=== PATIENT | male | born 1960 | race African-American/Black ===

== ENCOUNTER 2018-05-07 21:51 | Inpatient (IN) | payer BC ==
[~2018-05-07] VITALS: Ht 190.5 cm; Wt 118.8 kg
[~2018-05-07 21:51] MED LIST: ASPI-1159 PO; ATOR10TA PO; LEVO25TA2 PO
[2018-05-07] MEDS ORDERED: ACETAMINOPHEN 325MG TABLET PO STA (22:36)
[2018-05-07] MEDS ORDERED: ASPIRIN 81MG TABLET PO ONE (22:45)
[2018-05-07] MEDS ORDERED: NITROGLYCERIN OINT 1GM/INCH UDPKT TD ONE (22:45)
[2018-05-07 23:21] LABS: BASOPHILS % 0.3 % (0.0-2.0); EOSINOPHILS % 4.8 % (0.0-5.0); HEMATOCRIT. 41.1 % (42.0-52.0); HEMOGLOBIN. 13.8 g/dL (14.0-18.0); LYMPHOCYTES % 27.5 % (20.0-50.0); MEAN CORPUSCULAR HEMOGLOBIN 29.3 pg (28.0-32.0); MEAN CORPUSCULAR VOLUME 87.3 fL (80.0-94.0); MEAN PLATELET VOLUME 8.5 fl (7.4-10.4); NEUTROPHILS % 58.4 % (40.0-76.0); PLATELET 168 x1000/uL (130-400); RED BLOOD CELL COUNT 4.71 mill/uL (4.7-6.1); RED CELL DISTRIBUTION WIDTH 13.9 % (11.6-14.6)
[2018-05-07 23:25] LABS: CHLORIDE 108 mEq/L (98-107)
[2018-05-07 23:28] LABS: INR 1.1; PROTHROMBIN TIME 11.4 sec (9.4-11.6)
[2018-05-07 23:29] LABS: ETHANOL BLOOD < 10 mg/dL
[2018-05-08] MEDS ORDERED: ACETAMINOPHEN 325MG TABLET ONE (00:07)
[2018-05-08 01:35] LABS: CLARITY URINE CLEAR (CLEAR); COLOR URINE YELLOW (YELLOW); KETONES URINE NEGATIVE (NEGATIVE); LEUKOCYTE ESTERASE URINE 3+ (NEGATIVE); NITRITE URINE NEGATIVE (NEGATIVE); OCCULT BLOOD URINE NEGATIVE (NEGATIVE); PH URINE 6.5 (4.5-8.0); PROTEIN URINE NEGATIVE (NEGATIVE); SPECIFIC GRAVITY URINE 1.012 (1.005-1.030); UROBILINOGEN URINE 0.2 E.U./dL (0.2-1.0)
[2018-05-08 01:46] LABS: *AMPHETAMINES SCREEN URINE NEGATIVE (NEGATIVE); *BARBITURATES SCREEN URINE NEGATIVE (NEGATIVE)
[2018-05-08 01:47] LABS: *BENZODIAZEPINES SCREEN URINE NEGATIVE (NEGATIVE); *COCAINE SCREEN URINE NEGATIVE (NEGATIVE); CANNABINOID URINE SCREEN NEGATIVE (NEGATIVE); METHADONE URINE SCREEN NEGATIVE (NEGATIVE); OPIATES URINE SCREEN NEGATIVE (NEGATIVE); PHENCYCLIDINE URINE SCREEN NEGATIVE (NEGATIVE)
[2018-05-08] MEDS ORDERED: CEFTRIAXONE 1 G PREMIX 50 ML IV NR (02:45)
[2018-05-08] MEDS ORDERED: CLOP75TA16 PO (10:05)
[2018-05-08] MEDS: ASPIRIN 81MG TABLET PO SCH (10:44)
[2018-05-08] MEDS: CLOPIDOGREL 75MG TABLET PO SCH (10:44)
[2018-05-08] MEDS: LEVOTHYROXINE SODIUM 25MCG TABLET PO SCH (10:45)
[2018-05-08 21:15] VITALS: BP 118/74
[2018-05-08] MEDS ORDERED: ONDANSETRON HCL 4MG/2ML VIAL IV PRN (23:15)
[2018-05-08] MEDS ORDERED: ATORVASTATIN CALCIUM 10MG TABLET PO SCH (23:15)
[2018-05-08] MEDS ORDERED: ACETAMINOPHEN 325MG TABLET PO PRN (23:15)
[2018-05-08] MEDS ORDERED: DEXTROSE 50% WATER 50ML SYRINGE IV PRN (23:30)
[2018-05-09] VITALS: BP 130/76
[2018-05-09 04:00] VITALS: BP 117/80
[2018-05-09] MEDS ORDERED: BLOOD SUGAR DIAGNOSTIC STRIP TEST SCH (07:10)
[2018-05-09 07:34] VITALS: BP 103/56
[2018-05-09] MEDS ORDERED: INSULIN LISPRO 100 UNITS/ML SUBCUT SCH (07:40)
[2018-05-09 08:21] LABS: BASOPHILS % 0.4 % (0.0-2.0); EOSINOPHILS % 4.9 % (0.0-5.0); HEMATOCRIT. 41.6 % (42.0-52.0); HEMOGLOBIN. 14.2 g/dL (14.0-18.0); LYMPHOCYTES % 31.5 % (20.0-50.0); MEAN CORPUSCULAR HEMOGLOBIN 29.6 pg (28.0-32.0); MEAN CORPUSCULAR VOLUME 87.1 fL (80.0-94.0); MEAN PLATELET VOLUME 8.8 fl (7.4-10.4); MONOCYTES % 10.3 % (2.0-8.0); NEUTROPHILS % 52.9 % (40.0-76.0); PLATELET 168 x1000/uL (130-400); RED BLOOD CELL COUNT 4.77 mill/uL (4.7-6.1); RED CELL DISTRIBUTION WIDTH 14.2 % (11.6-14.6)
[2018-05-09 09:08] LABS: CHLORIDE 108 mEq/L (98-107)
[2018-05-09 09:27] LABS: LDL CHOLESTEROL 64 mg/dL (5-100)
[2018-05-09 09:29] LABS: CREATINE KINASE 255 IU/L (39-308)
[2018-05-09 09:30] LABS: HDL CHOLESTEROL 36 mg/dL (40-59)
[2018-05-09 09:33] LABS: CREATINE KINASE MB FRACTION 0.7 ng/mL (0.5-3.6)
[2018-05-09] MEDS: CLOPIDOGREL 75MG TABLET PO SCH (09:39)
[2018-05-09] MEDS: ASPIRIN 81MG TABLET PO SCH (09:39)
[2018-05-09] MEDS: LEVOTHYROXINE SODIUM 25MCG TABLET PO SCH (09:39)
[2018-05-09 11:40] VITALS: BP 116/67
[2018-05-09 11:42] VITALS: BP 116/67
== END 2018-05-09 12:09 | disposition home or self-care (01) | DRG 206 ==
LOC: ER 21:51 → 8WST 05-08 02:43 → ENRESERV 05-08 19:34
PROVIDERS: ADMIT Internal Medicine; ATTEND Internal Medicine
DX: M94.0 Chondrocostal junction syndrome [Tietze] (principal); I42.9 Cardiomyopathy, unspecified; R74.0 Nonspecific elevation of levels of transaminase and lactic acid dehydrogenase [LDH]; E03.9 Hypothyroidism, unspecified; E78.00 Pure hypercholesterolemia, unspecified; E78.5 Hyperlipidemia, unspecified; I10 Essential (primary) hypertension; I25.10 Atherosclerotic heart disease of native coronary artery without angina pectoris; I25.2 Old myocardial infarction; Z82.49 Family history of ischemic heart disease and other diseases of the circulatory system; Z86.73 Personal history of transient ischemic attack (TIA), and cerebral infarction without residual deficits; Z79.899 Other long term (current) drug therapy; Z79.82 Long term (current) use of aspirin
CPT/HCPCS: 36415; 71045; 80048; 80053; 80061; 80305; 81003; 82550; 82553; 82962; 83605; 83690; 83735; 83880; 84484; 85025; 85610; 87086; 93005; 99285; G0482; J0696

== ENCOUNTER 2018-08-30 07:44 | Emergency (ER) | payer BC ==
[~2018-08-30] VITALS: Ht 190.5 cm; Wt 125.0 kg
[~2018-08-30 07:44] MED LIST changes: +CLOP75TA16 PO
[2018-08-30 07:55] VITALS: BP 141/81
[2018-09-15] MEDS ORDERED: CLOP75TA33 PO (13:47)
[2018-09-15] MEDS ORDERED: METO25TA6 PO (13:47)
[2018-09-15] MEDS ORDERED: TRAM100C3 PO (13:47)
[2018-09-15] MEDS ORDERED: AMI2 PO (13:47)
== END 2018-08-30 09:07 | disposition home or self-care (01) ==
LOC: ER 07:44
DX: S16.1XXA Strain of muscle, fascia and tendon at neck level, initial encounter (principal); I25.2 Old myocardial infarction; R03.0 Elevated blood-pressure reading, without diagnosis of hypertension; Z86.73 Personal history of transient ischemic attack (TIA), and cerebral infarction without residual deficits; Z79.82 Long term (current) use of aspirin; X58.XXXA Exposure to other specified factors, initial encounter; Y93.89 Activity, other specified; Y92.018 Other place in single-family (private) house as the place of occurrence of the external cause
CPT/HCPCS: 99282; 99283

== ENCOUNTER 2018-09-04 11:50 | Inpatient (IN) | payer BC ==
[~2018-09-04] VITALS: Ht 190.5 cm; Wt 124.0 kg
[2018-09-04] VITALS (16 sets, daily range): BP systolic 99–141; BP diastolic 29–96
[2018-09-04 13:00] LABS: INR 1.1; PROTHROMBIN TIME 10.7 sec (9.1-11.1)
[2018-09-04 13:03] LABS: CHLORIDE 103 mEq/L (98-107)
[2018-09-04 13:06] LABS: BASOPHILS % 0.5 % (0.0-2.0); EOSINOPHILS % 7.1 % (0.0-5.0); HEMATOCRIT. 44.8 % (42.0-52.0); HEMOGLOBIN. 15.4 g/dL (14.0-18.0); LYMPHOCYTES % 26.8 % (20.0-50.0); MEAN CORPUSCULAR HEMOGLOBIN 30.3 pg (28.0-32.0); MEAN CORPUSCULAR VOLUME 88.4 fL (80.0-94.0); MEAN PLATELET VOLUME 8.6 fl (7.4-10.4); MONOCYTES % 10.8 % (2.0-8.0); NEUTROPHILS % 54.8 % (40.0-76.0); PLATELET 232 x1000/uL (130-400); RED BLOOD CELL COUNT 5.07 mill/uL (4.7-6.1); RED CELL DISTRIBUTION WIDTH 13.3 % (11.6-14.6)
[2018-09-04] MEDS ORDERED: AMIODARONE HCL 150 MG in DEXT 5% WATER 100 ML IV ONE (13:45)
[2018-09-04] MEDS ORDERED: AMIODARONE HCL 900 MG in DEXT 5% WATER 500 ML IV ONE (13:45)
[2018-09-04] MEDS ORDERED: AMIODARONE HCL 50MG/ML 3ML VIAL IV ONE (14:13)
[2018-09-04] MEDS ORDERED: POTASSIUM CHLORIDE 20MEQ TABLET SR PO NR (15:45)
[2018-09-04] MEDS ORDERED: ACETAMINOPHEN 650MG/20.3ML UDC PO PRN (16:00)
[2018-09-04] MEDS ORDERED: METOPROLOL TARTRATE 5MG/5ML VIAL IV NR (16:30)
[2018-09-04] MEDS ORDERED: METOPROLOL TARTRATE 5MG/5ML VIAL IV ONE (16:35)
[2018-09-04] MEDS ORDERED: METOPROLOL TARTRATE 5MG/5ML VIAL IV PRN (16:45)
[2018-09-04] MEDS: METOPROLOL TARTRATE 25MG TABLET PO SCH ×2 (16:46→21:00)
[2018-09-04] MEDS ORDERED: MAGNESIUM 1 G PREMIX 100 ML IV NR (17:00)
[2018-09-04] MEDS ORDERED: MAGNESIUM 1 G PREMIX 100 ML IV STA (17:48)
[2018-09-04] MEDS ORDERED: LIDOCAINE HCL 2% 5ML SYRINGE IV STA (17:48)
[2018-09-04] MEDS ORDERED: ESMOLOL 2500MG PREMIX 250 ML IV ONE ×2 (18:00)
[2018-09-04] MEDS ORDERED: LEVOTHYROXINE SODIUM 25MCG TABLET PO NR (21:00)
[2018-09-04] MEDS: ATORVASTATIN CALCIUM 20MG TABLET PO SCH (21:00)
[2018-09-04] MEDS: ENOXAPARIN 30MG/0.3ML SYR SUBCUT SCH (22:05)
[2018-09-04] MEDS: ESMOLOL 2500MG PREMIX 250 ML IV PRN (23:16)
[2018-09-04] MEDS: AMIODARONE HCL 900 MG in DEXT 5% WATER 500 ML IV PRN (23:18)
[2018-09-05] VITALS (91 sets, daily range): BP systolic 87–156; BP diastolic 29–87
[2018-09-05] MEDS: ESMOLOL 2500MG PREMIX 250 ML IV PRN ×3 (01:00→11:34)
[2018-09-05 05:14] LABS: BASOPHILS % 0.3 % (0.0-2.0); EOSINOPHILS % 7.6 % (0.0-5.0); HEMATOCRIT. 41.7 % (42.0-52.0); HEMOGLOBIN. 14.2 g/dL (14.0-18.0); LYMPHOCYTES % 23.6 % (20.0-50.0); MEAN CORPUSCULAR VOLUME 87.6 fL (80.0-94.0); MEAN PLATELET VOLUME 8.4 fl (7.4-10.4); MONOCYTES % 14.5 % (2.0-8.0); PLATELET 204 x1000/uL (130-400); RED BLOOD CELL COUNT 4.76 mill/uL (4.7-6.1); RED CELL DISTRIBUTION WIDTH 13.1 % (11.6-14.6)
[2018-09-05 05:36] LABS: CHLORIDE 104 mEq/L (98-107)
[2018-09-05 05:46] LABS: CREATINE KINASE 241 IU/L (39-308); CREATINE KINASE MB FRACTION < 1.0 ng/mL (0.5-3.6); HDL CHOLESTEROL 33 mg/dL (40-59); LDL CHOLESTEROL 62 mg/dL (5-100)
[2018-09-05] MEDS: METOPROLOL TARTRATE 25MG TABLET PO SCH ×2 (08:25→20:10)
[2018-09-05] MEDS: ENOXAPARIN 30MG/0.3ML SYR SUBCUT SCH ×2 (08:29→20:10)
[2018-09-05] MEDS: CLOPIDOGREL 75MG TABLET PO SCH (08:29)
[2018-09-05] MEDS: ASPIRIN 81MG TABLET PO SCH (11:43)
[2018-09-05] MEDS ORDERED: MAGNESIUM SULFATE 2 GM in DEXTROSE 5% WATER 50 ML IV NR (12:00)
[2018-09-05] MEDS: LEVOTHYROXINE SODIUM 25MCG TABLET PO SCH (13:46)
[2018-09-05] MEDS: AMIODARONE HCL 900 MG in DEXT 5% WATER 500 ML IV PRN (14:14)
[2018-09-05 15:46] LABS: *BENZODIAZEPINES SCREEN URINE NEGATIVE (NEGATIVE); *COCAINE SCREEN URINE NEGATIVE (NEGATIVE); METHADONE URINE SCREEN NEGATIVE (NEGATIVE); OPIATES URINE SCREEN NEGATIVE (NEGATIVE)
[2018-09-05 15:54] LABS: *AMPHETAMINES SCREEN URINE NEGATIVE (NEGATIVE); *BARBITURATES SCREEN URINE NEGATIVE (NEGATIVE); CANNABINOID URINE SCREEN NEGATIVE (NEGATIVE); PHENCYCLIDINE URINE SCREEN NEGATIVE (NEGATIVE)
[2018-09-05] MEDS: ATORVASTATIN CALCIUM 20MG TABLET PO SCH (20:09)
[2018-09-06] VITALS (59 sets, daily range): BP systolic 79–155; BP diastolic 37–107
[2018-09-06 05:55] LABS: BASOPHILS % 0.3 % (0.0-2.0); EOSINOPHILS % 8.8 % (0.0-5.0); HEMATOCRIT. 41.7 % (42.0-52.0); HEMOGLOBIN. 14.3 g/dL (14.0-18.0); LYMPHOCYTES % 22.8 % (20.0-50.0); MEAN CORPUSCULAR HEMOGLOBIN 29.9 pg (28.0-32.0); MEAN CORPUSCULAR VOLUME 87.3 fL (80.0-94.0); MEAN PLATELET VOLUME 8.7 fl (7.4-10.4); MONOCYTES % 14.7 % (2.0-8.0); NEUTROPHILS % 53.4 % (40.0-76.0); PLATELET 191 x1000/uL (130-400); RED BLOOD CELL COUNT 4.78 mill/uL (4.7-6.1); RED CELL DISTRIBUTION WIDTH 13.2 % (11.6-14.6)
[2018-09-06 06:46] LABS: CHLORIDE 102 mEq/L (98-107)
[2018-09-06] MEDS: ENOXAPARIN 30MG/0.3ML SYR SUBCUT SCH ×2 (08:45→20:26)
[2018-09-06] MEDS: ASPIRIN 81MG TABLET PO SCH (08:45)
[2018-09-06] MEDS: CLOPIDOGREL 75MG TABLET PO SCH (08:45)
[2018-09-06] MEDS: LEVOTHYROXINE SODIUM 25MCG TABLET PO SCH (08:46)
[2018-09-06] MEDS: METOPROLOL TARTRATE 25MG TABLET PO SCH ×2 (08:46→22:09)
[2018-09-06] MEDS: AMIODARONE HCL 200 MG TABLET PO SCH ×2 (09:51→20:26)
[2018-09-06] MEDS ORDERED: MAGNESIUM SULFATE 2 GM in DEXTROSE 5% WATER 50 ML IV SCH (11:00)
[2018-09-06] MEDS ORDERED: DIPHENHYDRAMINE 25MG CAPSULE PO NR (19:47)
[2018-09-06] MEDS: ATORVASTATIN CALCIUM 20MG TABLET PO SCH (20:26)
[2018-09-07] VITALS (43 sets, daily range): BP systolic 63–152; BP diastolic 34–105
[2018-09-07 06:03] LABS: BASOPHILS % 0.2 % (0.0-2.0); EOSINOPHILS % 7.9 % (0.0-5.0); HEMATOCRIT. 41.7 % (42.0-52.0); HEMOGLOBIN. 14.3 g/dL (14.0-18.0); LYMPHOCYTES % 20.6 % (20.0-50.0); MEAN CORPUSCULAR HEMOGLOBIN 30.1 pg (28.0-32.0); MEAN CORPUSCULAR VOLUME 87.8 fL (80.0-94.0); MEAN PLATELET VOLUME 8.3 fl (7.4-10.4); MONOCYTES % 14.8 % (2.0-8.0); NEUTROPHILS % 56.5 % (40.0-76.0); PLATELET 200 x1000/uL (130-400); RED BLOOD CELL COUNT 4.75 mill/uL (4.7-6.1); RED CELL DISTRIBUTION WIDTH 12.8 % (11.6-14.6)
[2018-09-07 06:08] LABS: CHLORIDE 99 mEq/L (98-107)
[2018-09-07] MEDS: AMIODARONE HCL 200 MG TABLET PO SCH ×2 (08:09→20:20)
[2018-09-07] MEDS: METOPROLOL TARTRATE 25MG TABLET PO SCH ×2 (08:09→21:22)
[2018-09-07] MEDS: LEVOTHYROXINE SODIUM 25MCG TABLET PO SCH (08:09)
[2018-09-07] MEDS: CLOPIDOGREL 75MG TABLET PO SCH (08:09)
[2018-09-07] MEDS: ASPIRIN 81MG TABLET PO SCH (08:11)
[2018-09-07] MEDS ORDERED: ASPIRIN/SOD BICARB/CITRIC ACID 324MG TAB EFF ONE (08:22)
[2018-09-07] MEDS ORDERED: LIDOCAINE HCL 1% 20ML VIAL (Pyxis) INJ ONE (08:25)
[2018-09-07] MEDS ORDERED: MIDAZOLAM HCL 2 MG/2 ML VIAL ONE (08:25)
[2018-09-07] MEDS ORDERED: FENTANYL CITRATE/PF 50MCG/ML 2ML VIAL ONE (08:25)
[2018-09-07] MEDS ORDERED: IODIXANOL 320MG/ML 100 ML BOTTLE IV ONE (08:26)
[2018-09-07] MEDS ORDERED: ATROPINE SULFATE 1MG/10ML SYR IV PRN (09:15)
[2018-09-07] MEDS ORDERED: SODIUM CHLORIDE 0.45% 1,000 ML IV ONE (09:15)
[2018-09-07] MEDS ORDERED: ACETAMINOPHEN 325MG TABLET PO PRN (09:15)
[2018-09-07] MEDS ORDERED: MORPHINE SULFATE 4 MG/ML CPJ (NOT FOR IM USE) IV PRN (09:15)
[2018-09-07] MEDS ORDERED: HEPARIN SODIUM 1,000 UNIT/1ML VIAL IV ONE (14:06)
[2018-09-07] MEDS ORDERED: NICARDIPINE 100MCG/ML 10ML VIAL (CATH LAB) IV ONE (15:32)
[2018-09-07] MEDS ORDERED: NITROGLYCERIN 50MCG/ML 10ML VIAL (CATH LAB) IV ONE (15:32)
[2018-09-07] MEDS: ATORVASTATIN CALCIUM 20MG TABLET PO SCH (20:19)
[2018-09-07] MEDS: DIPHENHYDRAMINE 25MG CAPSULE PO PRN (21:23)
[2018-09-08] VITALS (44 sets, daily range): BP systolic 98–139; BP diastolic 24–93
[2018-09-08 05:51] LABS: BASOPHILS % 0.3 % (0.0-2.0); EOSINOPHILS % 6.8 % (0.0-5.0); HEMATOCRIT. 41.9 % (42.0-52.0); HEMOGLOBIN. 14.5 g/dL (14.0-18.0); LYMPHOCYTES % 17.3 % (20.0-50.0); MEAN CORPUSCULAR HEMOGLOBIN 29.9 pg (28.0-32.0); MEAN CORPUSCULAR VOLUME 86.4 fL (80.0-94.0); MEAN PLATELET VOLUME 8.3 fl (7.4-10.4); MONOCYTES % 13.6 % (2.0-8.0); PLATELET 221 x1000/uL (130-400); RED BLOOD CELL COUNT 4.84 mill/uL (4.7-6.1)
[2018-09-08 06:24] LABS: CHLORIDE 98 mEq/L (98-107)
[2018-09-08] MEDS: LEVOTHYROXINE SODIUM 25MCG TABLET PO SCH (08:12)
[2018-09-08] MEDS: CLOPIDOGREL 75MG TABLET PO SCH (09:06)
[2018-09-08] MEDS: AMIODARONE HCL 200 MG TABLET PO SCH ×2 (09:06→20:13)
[2018-09-08] MEDS: METOPROLOL TARTRATE 25MG TABLET PO SCH ×2 (09:07→20:24)
[2018-09-08] MEDS: ASPIRIN 81MG TABLET PO SCH (09:07)
[2018-09-08] MEDS ORDERED: MAGNESIUM 2 G PREMIX 50 ML IV ONE (10:15)
[2018-09-08] MEDS: MAGNESIUM OXIDE 400MG TABLET PO SCH (10:35)
[2018-09-08] MEDS ORDERED: MAGNESIUM SULFATE 2 GM in DEXTROSE 5% WATER 50 ML IV NR (12:00)
[2018-09-08] MEDS: ATORVASTATIN CALCIUM 20MG TABLET PO SCH (20:12)
[2018-09-08] MEDS: DIPHENHYDRAMINE 25MG CAPSULE PO PRN (20:13)
[2018-09-09] VITALS (11 sets, daily range): BP systolic 110–142; BP diastolic 70–85
[2018-09-09] MEDS: LEVOTHYROXINE SODIUM 25MCG TABLET PO SCH (06:09)
[2018-09-09 06:37] LABS: BASOPHILS % 0.3 % (0.0-2.0); EOSINOPHILS % 2.3 % (0.0-5.0); HEMATOCRIT. 43.4 % (42.0-52.0); LYMPHOCYTES % 12.7 % (20.0-50.0); MEAN CORPUSCULAR HEMOGLOBIN 30.1 pg (28.0-32.0); MEAN CORPUSCULAR VOLUME 86.7 fL (80.0-94.0); MEAN PLATELET VOLUME 7.9 fl (7.4-10.4); NEUTROPHILS % 73.7 % (40.0-76.0); PLATELET 208 x1000/uL (130-400); RED BLOOD CELL COUNT 5.01 mill/uL (4.7-6.1)
[2018-09-09 06:50] LABS: CHLORIDE 97 mEq/L (98-107)
[2018-09-09] MEDS: MAGNESIUM OXIDE 400MG TABLET PO SCH (09:03)
[2018-09-09] MEDS: AMIODARONE HCL 200 MG TABLET PO SCH ×2 (09:03→20:57)
[2018-09-09] MEDS: METOPROLOL TARTRATE 25MG TABLET PO SCH ×2 (09:03→20:58)
[2018-09-09] MEDS ORDERED: IODIXANOL 320MG/ML 100 ML BOTTLE IV ONE (11:37)
[2018-09-09] MEDS ORDERED: GENTAMICIN SULF 40MG/ML 2ML VIAL ONE (11:37)
[2018-09-09] MEDS ORDERED: LIDOCAINE HCL 1% 10 MG/ML 10ML VIAL ONE (11:37)
[2018-09-09] MEDS ORDERED: GENTAMICIN/NS IRRIGATION 500 ML IR ONE (11:38)
[2018-09-09] MEDS ORDERED: FENTANYL CITRATE/PF 50MCG/ML 2ML VIAL ONE (12:48)
[2018-09-09] MEDS ORDERED: PROPOFOL 200MG/20ML VIAL IV ONE (12:48)
[2018-09-09] MEDS ORDERED: MIDAZOLAM HCL 2 MG/2 ML VIAL ONE (12:48)
[2018-09-09] MEDS ORDERED: CEFAZOLIN SODIUM 1000MG/VIAL ONE (13:51)
[2018-09-09] MEDS ORDERED: MAGNESIUM SULFATE 2 GM in DEXTROSE 5% WATER 50 ML IV NR (15:00)
[2018-09-09] MEDS: ATORVASTATIN CALCIUM 20MG TABLET PO SCH (20:57)
[2018-09-10] VITALS (7 sets, daily range): BP systolic 113–139; BP diastolic 61–87
[2018-09-10] MEDS: DIPHENHYDRAMINE 25MG CAPSULE PO PRN (01:10)
[2018-09-10] MEDS: LEVOTHYROXINE SODIUM 25MCG TABLET PO SCH (06:07)
[2018-09-10 06:56] LABS: HEMOGLOBIN. 14.7 g/dL (14.0-18.0); MEAN CORPUSCULAR HEMOGLOBIN 30.3 pg (28.0-32.0); MEAN CORPUSCULAR VOLUME 86.5 fL (80.0-94.0); MEAN PLATELET VOLUME 7.6 fl (7.4-10.4); PLATELET 220 x1000/uL (130-400); RED BLOOD CELL COUNT 4.86 mill/uL (4.7-6.1); RED CELL DISTRIBUTION WIDTH 12.9 % (11.6-14.6)
[2018-09-10 08:25] LABS: CHLORIDE 97 mEq/L (98-107)
[2018-09-10] MEDS: MAGNESIUM OXIDE 400MG TABLET PO SCH (08:56)
[2018-09-10] MEDS: AMIODARONE HCL 200 MG TABLET PO SCH (08:56)
[2018-09-10] MEDS: METOPROLOL TARTRATE 25MG TABLET PO SCH (08:57)
[2018-09-10 10:31] LABS: PLATELET ESTIMATE NORMAL
[2018-09-10] MEDS ORDERED: MAGNESIUM 1 G PREMIX 100 ML IV SCH (11:00)
[2018-09-15] MEDS ORDERED: METO25TA6 PO (13:47)
[2018-09-15] MEDS ORDERED: CLOP75TA33 PO (13:47)
[2018-09-15] MEDS ORDERED: TRAM100C3 PO (13:47)
[2018-09-15] MEDS ORDERED: AMI2 PO (13:47)
== END 2018-09-10 12:59 | disposition home or self-care (01) | DRG 286 ==
LOC: ER 11:50 → CVICU 14:05 → EDBEDREQ 14:14 → SUPCPDRO 15:45 → ENRESERV 17:33 → 3WST 09-08 22:30
PROVIDERS: ADMIT Internal Medicine; ATTEND Internal Medicine
PROC: 4A023N7 Measurement of Cardiac Sampling and Pressure, Left Heart, Percutaneous Approach (ICD-10-PCS; principal; 2018-09-08)
PROC: B2151ZZ Fluoroscopy of Left Heart using Low Osmolar Contrast (ICD-10-PCS; 2018-09-08)
PROC: B2111ZZ Fluoroscopy of Multiple Coronary Arteries using Low Osmolar Contrast (ICD-10-PCS; 2018-09-08)
DX: I47.2 Ventricular tachycardia (principal); J96.00 Acute respiratory failure, unspecified whether with hypoxia or hypercapnia; I42.0 Dilated cardiomyopathy; I69.354 Hemiplegia and hemiparesis following cerebral infarction affecting left non-dominant side; I10 Essential (primary) hypertension; I49.3 Ventricular premature depolarization; I25.10 Atherosclerotic heart disease of native coronary artery without angina pectoris; D35.2 Benign neoplasm of pituitary gland; E03.9 Hypothyroidism, unspecified; E78.00 Pure hypercholesterolemia, unspecified; E83.42 Hypomagnesemia; I44.0 Atrioventricular block, first degree; N28.9 Disorder of kidney and ureter, unspecified; I25.2 Old myocardial infarction; Z95.810 Presence of automatic (implantable) cardiac defibrillator; Z79.82 Long term (current) use of aspirin; Z79.02 Long term (current) use of antithrombotics/antiplatelets; Z79.899 Other long term (current) drug therapy; E78.5 Hyperlipidemia, unspecified; I50.9 Heart failure, unspecified; I11.0 Hypertensive heart disease with heart failure
CPT/HCPCS: 33249; 36415; 71045; 75820; 80048; 80061; 80305; 82550; 82553; 83735; 84443; 84484; 85379; 93005; 93306; 93458; 93641; 96365; 96366; 96367; 96375; 99291; A4565; C1722; C1760; C1769; C1892; C1893; C1899; J0282; J0690; J1580; J1644; J1650; J2250; J2704; J3010; J3475; J3490; J7030; J7050; J7060; Q0163; Q9967